=== PATIENT | female | born 1975 | race American Indian/Alaskan Native ===

== ENCOUNTER 2021-05-11 08:13 | Outpatient (CLI) | payer BC ==
--- NOTE | 2021-05-11 10:12 | Ultrasound Report ---
ULTRASOUND GUIDED LEFT BREAST CYST ASPIRATION, 05/11/2021 CLINICAL INFORMATION / INDICATION: N60.02. Patient presents for left breast cyst aspiration. COMPARISON: Left breast ultrasound performed in Dr. Hernandez office dated 04/23/2021 PROCEDURE: Risks, benefits, and indications to the procedure were discussed with the patient in detail, includin g bleeding, infection and hematoma formation. The patient agreed to proceed with both verbal and writ ten consent. A timeout procedure was performed with two patient identifiers. The breast was prepped and draped in the usual sterile fashion. Lidocaine 1% without epinephrine with used for local anesthesia. Under direct ultrasound guidance, an 18-gauge needle was advanced into th e 3:00 left breast cyst, and the cyst collapsed. A trace amount of serous fluid was aspirated and dis carded. The needle was removed and hemostasis achieved with manual pressure. A sterile dressing was a pplied to the skin. The patient tolerated the procedure without difficulty. No complications were encountered. Postprocedure instructions were discussed with the patient and given in writing. IMPRESSION: 1. Technically successful ultrasound guided left cyst aspiration. The previously seen left breast cys t collapsed. Biopsy results are pending and will be reported in an addendum. Signer Name: Pippa Breen MD Signed: 05/11/2021 10:08 AM Workstation Name: [id number]
== END 2021-05-11 08:14 | disposition home or self-care (01) ==
LOC: SPVWC 08:13
PROVIDERS: ATTEND Surgery
DX: N60.02 Solitary cyst of left breast (principal); N64.89 Other specified disorders of breast
CPT/HCPCS: 76942